=== PATIENT | female | born 1995 | race Caucasian/White ===

== ENCOUNTER 2018-08-29 03:56 | Emergency (ER) | payer BC, OTHER ==
[~2018-08-29] VITALS: Ht 175.3 cm; Wt 61.4 kg
[2018-08-29] MEDS ORDERED: NS 1,000 ML IV ONE (04:30)
[2018-08-29] MEDS ORDERED: KETOROLAC 30 MG/ML VIAL (J1885) IV ONE (04:30)
[2018-08-29 05:22] VITALS: BP 110/55
--- NOTE | 2018-08-29 05:40 | REPVR ---
EXAM: US Retroperitoneal Limited, Kidneys EXAM DATE/TIME: 08/29/2018 4:57 AM CLINICAL HISTORY: 23 years old, female; Pain; Abdominal pain; Flank; Left; ; Additional info: L ureterolith TECHNIQUE: Real-time ultrasound of the retroperitoneum with image documentation. Examination was focused on the kidneys. COMPARISON: No relevant prior studies available. FINDINGS: Right kidney: The right kidney measures 11.4 cm in its cephalocaudad dimension and 5.0 x 5.2 cm in diameter. No mass, cyst or hydronephrosis. Left kidney: The left kidney measures 12.3 cm in its cephalocaudad dimension and 6.3 x 5.8 cm in diameter. No mass, cyst or hydronephrosis. Uterus: Intrauterine gestation. Bladder: The urinary bladder demonstrates some low level internal echoes consistent with minimal debris. Bladder volume is 158 mL. IMPRESSION: 1. Debris in the urinary bladder. 2. Intrauterine gestation. 3. 3 Otherwise negative renal sonogram. No hydronephrosis. Electronically signed by: Wellington Villegas On 08/29/2018 05:40:03 AM
== END 2018-08-29 05:24 | disposition home or self-care (01) ==
LOC: M ED 03:56
DX: O26.831 Pregnancy related renal disease, first trimester (principal); N20.1 Calculus of ureter; Z3A.12 12 weeks gestation of pregnancy; Z87.442 Personal history of urinary calculi; Z88.0 Allergy status to penicillin; Z88.6 Allergy status to analgesic agent
CPT/HCPCS: 76775; 96374; 99284; J1885

== ENCOUNTER 2018-10-12 00:22 | Emergency (ER) | payer BC, OTHER ==
[~2018-10-12] VITALS: Ht 175.3 cm; Wt 62.7 kg
[2018-10-12] MEDS ORDERED: MACR100C43 PO (00:58)
[2018-10-12] MEDS ORDERED: PREN29TA4 PO (00:58)
[2018-10-12] MEDS ORDERED: LABE100T36 PO (00:58)
[2018-10-12 03:19] VITALS: BP 129/96
[2018-10-12] MEDS ORDERED: ACETAMINOPHEN TAB 650MG DOSE (2X325MG) PO ONE (04:00)
== END 2018-10-12 03:58 | disposition left against medical advice (07) ==
LOC: M ED 00:22
DX: R51 Headache (principal); Z53.21 Procedure and treatment not carried out due to patient leaving prior to being seen by health care provider